=== PATIENT | male | born 1965 | race Caucasian/White ===

== ENCOUNTER → 2024-12-07 11:26 | Outpatient (REF) | payer OTHER, SELFPAY | LOC: RAD 11:26 | PROVIDERS: ATTENDING PHYSICIAN Nurse Practitioner Family | DX: M79.671 Pain in right foot (principal); M1A.9XX0 Chronic gout, unspecified, without tophus (tophi); M10.9 Gout, unspecified | CPT/HCPCS: 73630 ==

== ENCOUNTER 2025-06-20 06:32 | Day surgery (SDC) | payer OTHER, SELFPAY | END 2025-06-20 11:30 | disposition home or self-care (01) | LOC: GI 06:32 | PROVIDERS: ATTENDING PHYSICIAN Internal Medicine Gastroenterology | DX: Z12.11 Encounter for screening for malignant neoplasm of colon (principal); K64.8 Other hemorrhoids; K57.30 Diverticulosis of large intestine without perforation or abscess without bleeding; Z86.0100 Personal history of colon polyps, unspecified | CPT/HCPCS: G0105 ==